=== PATIENT | female | born 1955 | race Caucasian/White ===

== ENCOUNTER 2018-11-23 10:09 | Emergency (ER) | payer OTHER ==
[~2018-11-23] VITALS: Ht 165.1 cm; Wt 86.2 kg
[~2018-11-23 10:09] MED LIST: DOXYCYCLINE 10100 MG PO; FLEXERIL; GLUMETZA500; JANUVIA100 MG PO; LYRICA25 MG; MOBIC15 MG; MOBIC7.5 MG PO; PRAVACHOL40 MG PO; PROAIR HFA8.5 GM IH; ROBAXIN 750 MG750 M1 PO; TRICOR145 MG PO; ZESTRIL10 MG PO
[2018-11-23] MEDS ORDERED: CRESTOR10 MG PO (10:18)
[2018-11-23] MEDS ORDERED: GLYBURIDE 5 MG T5 M1 PO (10:19)
[2018-11-23] MEDS ORDERED: CLEOCIN HCL300 MG PO (11:01)
[2018-11-23 11:09] VITALS: BP 133/71
== END 2018-11-23 11:09 | disposition home or self-care (01) ==
LOC: M.ERS 10:09
DX: L02.31 Cutaneous abscess of buttock (principal); I10 Essential (primary) hypertension; E11.9 Type 2 diabetes mellitus without complications; E78.00 Pure hypercholesterolemia, unspecified; J45.909 Unspecified asthma, uncomplicated; Z88.2 Allergy status to sulfonamides; Z88.0 Allergy status to penicillin